=== PATIENT | female | born 1985 | race Caucasian/White ===

== ENCOUNTER 2017-08-10 12:12 | Observation (INO) | payer SELFPAY ==
--- NOTE | 2017-08-10 12:46 | RAD ---
CHEST ONE VIEW: HISTORY: Dyspnea. COMPARISON: None. FINDINGS: The cardiac silhouette is magnified by projection. The pulmonary vasculature is unremarkable. The m ediastinum is midline. There is no confluent air space consolidation or evidence of pneumothorax. IMPRESSION: No active cardiopulmonary abnormalities demonstrated. POS: [facility]
[2017-08-10 12:55] LABS: ALT (SGPT) 13 U/L (8-55); AST (SGOT) 18 U/L (5-34); Albumin 4.7 g/dL (3.5-5.0); Alkaline Phosphatase 74 U/L (40-150); Anion Gap 16 mmol/L (10-20); BUN (Urea Nitrogen) 9 mg/dL (7.0-18.7); Bilirubin, Total 0.6 mg/dL (0.2-1.2); CK (CPK) 43 U/L (29-168); Calc. Creatinine Clearance 0 mL/min (70-130); Calcium 9.5 mg/dL (7.8-10.44); Carbon Dioxide 21 mmol/L (22-29); Chloride 104 mmol/L (98-107); Estimated GFR-MDRD Greater than 90; Globulin 3.1 g/dL (2.4-3.5); Glucose 89 mg/dL (70-105); Potassium 3.5 mmol/L (3.5-5.1); Protein, Total 7.8 g/dL (6.0-8.3); Sodium 137 mmol/L (136-145)
[2017-08-10 13:00] LABS: CKMB 0.7 ng/mL (0-6.6); Troponin I Less than 0.010 ng/mL (< 0.028)
[2017-08-10 13:20] LABS: #Basophils 0.1 thou/uL (0.0-0.2); #Lymphocytes 1.9 thou/uL (1.20-3.40); #Monocytes 0.5 thou/uL (0.11-0.59); #Neutrophils 4.2 thou/uL (1.40-6.50); %Basophils 1.5 % (0.0-1.0); %Eosinophils 0.4 % (0.0-10.0); %Lymphocytes 27.6 % (21.0-51.0); %Monocytes 7.6 % (0.0-10.0); %Neutrophils 62.9 % (42.0-75.0); Hemoglobin 14.6 g/dL (12.0-16.0); Mean Corpuscular HGB CONC 33.1 g/dL (32.0-36.0); Mean Corpuscular Hemoglobin 33.5 pg (27.0-31.0); Mean Platelet Volume 7.8 fL (7.4-10.4); Platelet Count 245 thou/uL (130-400); RBC Distribution Width 10.7 % (11.5-14.5); Red Blood Cell (RBC) Count 4.37 mill/uL (4.20-5.40); White Blood Cell (WBC) Count 6.7 thou/uL (4.8-10.8)
[2017-08-10 13:23] LABS: Pregnancy Test - Urine (BHCG) Negative (Negative); Pregu Control Background? CLEAR/WHITE (CLR/WHITE); Pregu Control Bar Appear? YES (CONTROL BAR); Specific Gravity 1.007 (1.002-1.036)
--- NOTE | 2017-08-10 15:45 | CT ---
CONTRAST ENHANCED CTA CHEST: History: Dyspnea. Technique: Contrast enhanced CTA of the chest was performed. 2D and 3D reconstructed images were perf ormed on a 3D independent workstation. No evidence of pulmonary parenchymal lesions seen. No evidence of pleural or pericardial effusions se en. No evidence of filling defects seen in the pulmonary arteries to suggest pulmonary emboli. The mediastinum is unremarkable. IMPRESSION: Unremarkable contrast enhanced CT chest. POS: [facility]
[2017-08-10 17:02] LABS: Amphetamine Not Detected (NotDetected); Barbiturates Screen Not Detected (NotDetected); Benzodiazepine Screen Not Detected (NotDetected); Cocaine Metabolite Screen Not Detected (NotDetected); Medtox Reader # READER 1; Methadone Not Detected (NotDetected); Methamphetamine Not Detected (NotDetected); Opiate Screen Not Detected (NotDetected); Oxycodone Screen Not Detected (NotDetected); Phencyclidine (PCP) Not Detected (NotDetected); THC/Cannabinoid Screen Not Detected (NotDetected); Tricyclic Screen Not Detected (NotDetected)
[2017-08-10 17:03] LABS: Medtox Control Line Valid? VALID (VALID)
[2017-08-10] MEDS ORDERED: ISOVUE-370 76%-LOCM 1 ML ONE (17:08)
[2017-08-10] MEDS ORDERED: Ondansetron HCl/PF 4 MG/2 ML Vial IVP PRN (17:30)
[2017-08-10] MEDS ORDERED: Ondansetron ODT 4 MG TAB SL PRN (17:30)
[2017-08-10] MEDS ORDERED: Acetaminophen 325 MG TAB PO PRN (17:30)
[2017-08-10 17:37] VITALS: BMI 21.7
[2017-08-10] MEDS ORDERED: Enoxaparin Sodium 40 MG/0.4 ML SYRINGE SC SCH (18:45)
[2017-08-10 19:37] LABS: Troponin I 0.039 ng/mL (< 0.028)
--- NOTE | 2017-08-10 22:47 | CON ---
DATE OF CONSULTATION: 08/10/2017 REASON FOR CONSULTATION: Palpitations, indeterminate troponin, subjective feeling of rapid heart rat e, lightheadedness, near syncope. HISTORY OF PRESENT ILLNESS: Ms. Mendoza is a very pleasant 32-year-old woman. She is working in an [employer] associated with [place] and started feeling lightheaded like she may blackout and things got black. She said she has had this in the past when she just put her head down and she is okay with t his time, better. She had a nurse took her blood pressure and when the blood pressure was taken, blo od pressure was high. She also had a feeling of rapid heart rate. She came here to the hospital. S he had extensive evaluation including CT pulmonary angiogram, thyroid tests, CBC, no specific etiolog y of the symptoms has been found yet. The patient has had no fever or chills. No chest pain or pressure. ALLERGIES: None known. MEDICATIONS: None on a regular basis. REVIEW OF SYSTEMS: Constitutional: No significant weight gain or loss. Vision: No changes. Hearing: No changes. Pu lmonary: No cough or wheezing. Gastrointestinal: No nausea, vomiting, diarrhea. Skin: No rashes. Neurologic: No unilateral weakness or numbness. Psychiatric: No unusual depression or anxiety. Hematologic: No unusual bruising. Genitourinary: No burning with urination. PHYSICAL EXAMINATION: GENERAL: A pleasant 32-year-old woman, 5 foot 2 inches tall, 119 pounds. HEENT: Eyes, sclerae nonicteric. Mouth, mucous membranes moist. NECK: Supple, no lymphadenopathy. LUNGS: Clear. CARDIAC: Normal S1, normal S2. There is no murmur, rub or gallop. ABDOMEN: Soft, nontender, no hepatosplenomegaly. EXTREMITIES: Warm, dry, no clubbing, no cyanosis. There is no edema. Good pedal pulses bilaterally . LABORATORY: Potassium is 3.5. Toxicology was negative. Urine was negative for . D-dimer was 0.45. CT pulmonary angiogram was negative. The only borderline findings, the initial troponin was negative as follows, 0.039, which is just abov e the negative range into the indeterminant range. ASSESSMENT: 1. Lightheadedness and dizziness, near syncope suspicious for low blood pressure. 2. Subjective feeling of rapid heart rate. 3. The troponin level in the low indeterminate range. 4. Negative CT pulmonary angiogram. 5. Very low risk factor profile for coronary artery disease. PLAN: 1. Echocardiogram. 2. Repeat troponin in the morning. 3. Continue to monitor, reassess tomorrow.
[2017-08-11 03:06] LABS: #Basophils 0.1 thou/uL (0.0-0.2); #Lymphocytes 1.9 thou/uL (1.20-3.40); #Monocytes 0.4 thou/uL (0.11-0.59); #Neutrophils 2.4 thou/uL (1.40-6.50); %Basophils 1.9 % (0.0-1.0); %Lymphocytes 39.1 % (21.0-51.0); %Monocytes 7.7 % (0.0-10.0); %Neutrophils 50.4 % (42.0-75.0); Hemoglobin 13.8 g/dL (12.0-16.0); Mean Corpuscular HGB CONC 34.7 g/dL (32.0-36.0); Mean Corpuscular Hemoglobin 34.6 pg (27.0-31.0); Mean Corpuscular Volume 99.7 fl (81.0-99.0); Mean Platelet Volume 7.5 fL (7.4-10.4); Platelet Count 221 thou/uL (130-400); RBC Distribution Width 10.4 % (11.5-14.5); Red Blood Cell (RBC) Count 3.98 mill/uL (4.20-5.40); White Blood Cell (WBC) Count 4.8 thou/uL (4.8-10.8)
[2017-08-11 03:31] LABS: Troponin I Less than 0.010 ng/mL (< 0.028)
[2017-08-11 04:33] LABS: ALT (SGPT) 11 U/L (8-55); AST (SGOT) 15 U/L (5-34); Albumin 3.9 g/dL (3.5-5.0); Alkaline Phosphatase 60 U/L (40-150); Anion Gap 13 mmol/L (10-20); BUN (Urea Nitrogen) 11 mg/dL (7.0-18.7); Bilirubin, Total 0.8 mg/dL (0.2-1.2); Calc. Creatinine Clearance 104 mL/min (70-130); Calcium 8.7 mg/dL (7.8-10.44); Carbon Dioxide 22 mmol/L (22-29); Cardiac Risk 2.8 (Less than 4.5); Chloride 107 mmol/L (98-107); Cholesterol 113 mg/dl (< 200 Desired); Estimated GFR-MDRD Greater than 90; Globulin 2.5 g/dL (2.4-3.5); Glucose 87 mg/dL (70-105); HDL Cholesterol 41 mg/dL (>60 Neg Risk); LDL Cholesterol, Calculated 58 mg/dL; Potassium 3.5 mmol/L (3.5-5.1); Protein, Total 6.4 g/dL (6.0-8.3); Sodium 138 mmol/L (136-145); Triglycerides 71 mg/dL (Less than 150)
--- NOTE | 2017-08-11 07:52 | ULT ---
ULTRASOUND ABDOMINAL AORTA: Date: 08/11/17 HISTORY: Aneurysm. FINDINGS/IMPRESSION: The abdominal aorta demonstrates no evidence of aneurysmal dilatation. POS: [facility]
[2017-08-11 07:58] VITALS: TEMP 98.3
[2017-08-11 11:02] VITALS: BP 120/67
[2017-08-11 11:09] LABS: Troponin I Less than 0.010 ng/mL (< 0.028)
--- NOTE | 2017-08-11 14:34 | PRG ---
DATE OF SERVICE: 08/11/2017 Ms. Snyder is doing well today. She underwent echocardiography which was normal, stress testing which was normal, but there have been no abnormalities identified. She is released home. She was gi fabien Micardis. She has recurrent palpitations we can schedule at an outpatient event monitor. No car diac pathology has been identified. She did have one troponin which was in the low indeterminate lev el. Everything else was normal. She has a history of lupus, but there is no evidence of any lupus i nvolvement of her heart by echo which was normal or EKG which was also normal.
== END 2017-08-11 13:52 | disposition home or self-care (01) ==
LOC: ERS 12:12 → 2SW 17:08
PROVIDERS: ADMIT Internal Medicine; ATTEND Internal Medicine
DX: R42 Dizziness and giddiness (principal); R03.0 Elevated blood-pressure reading, without diagnosis of hypertension; R06.00 Dyspnea, unspecified; R55 Syncope and collapse; R53.1 Weakness; K21.9 Gastro-esophageal reflux disease without esophagitis; Z87.891 Personal history of nicotine dependence; Z90.49 Acquired absence of other specified parts of digestive tract; Z90.721 Acquired absence of ovaries, unilateral; Z98.890 Other specified postprocedural states
CPT/HCPCS: 36415; 71045; 71275; 76775; 80053; 80061; 80306; 81025; 82533; 82550; 82553; 84443; 84484; 85025; 85379; 93005; 93010; 93017; 93306; 94760; 96372; A4216; G0378; J1650

== ENCOUNTER 2017-11-26 19:37 | Emergency (ER) | payer BC, SELFPAY | END 2017-11-26 20:05 | disposition home or self-care (01) | LOC: SCSER 19:37 | DX: J02.9 Acute pharyngitis, unspecified (principal); F17.210 Nicotine dependence, cigarettes, uncomplicated | CPT/HCPCS: 87081; 87430; 99283 ==